=== PATIENT | male | born 1985 ===

== ENCOUNTER → 2022-08-14 | Outpatient (CLI) | LOC: M SOG 08:32 | PROVIDERS: ATTEND Orthopaedic Surgery Hand Surgery | DX: M79.641 Pain in right hand (principal); Z53.8 Procedure and treatment not carried out for other reasons ==

== ENCOUNTER → 2023-02-16 | Outpatient (CLI) | LOC: M SOG 10:48 | PROVIDERS: ATTEND Physician Assistant | DX: M79.644 Pain in right finger(s) (principal); Z53.8 Procedure and treatment not carried out for other reasons ==

== ENCOUNTER → 2023-02-17 | Outpatient (CLI) | LOC: M SOG 10:33 | PROVIDERS: ATTEND Orthopaedic Surgery Hand Surgery | DX: M79.641 Pain in right hand (principal) ==